=== PATIENT | female | born 1960 | race Two or more races ===

== ENCOUNTER 2025-03-11 07:37 | Day surgery (SDC) | payer BC, OTHER ==
[2025-03-06 14:31] LABS: MEAN PLATELET VOLUME 7.3 FL (7.4-10.4); PRE OP HEMATOCRIT 41.0 % (35.0-45.0); PRE OP HEMOGLOBIN 13.7 g/dL (12.0-16.0); PRE OP PLATELET COUNT 220 X10'3 (140-440); PRE OP WHITE BLOOD COUNT 5.8 10'3 (4.8-10.8); RED CELL DISTRIBUTION WIDTH 13.9 % (11.5-14.5)
[2025-03-06 14:47] LABS: CREATININE 0.54 MG/DL (0.40-0.90); PRE OP ALT 23 U/L (30-65); PRE OP ANION GAP 6 (8-16); PRE OP AST 23 U/L (10-37); PRE OP BILIRUB, TOTAL 0.5 MG/DL (0.0-1.0); PRE OP GLUCOSE 82 MG/DL (70-104); PRE OP POTASSIUM 3.9 MMOL/L (3.4-5.1); PRE OP SODIUM 141 MMOL/L (135-145); TOTAL CARBON DIOXIDE 28.1 MMOL/L (24-32); eGFR > 90 ML/MIN
[~2025-03-11] VITALS: Ht 157.5 cm; Wt 79.5 kg
[2025-03-11] VITALS (7 sets, daily range): BP systolic 116–153; BP diastolic 61–76; PULSE 62–76; RESP 11–19; TEMP 98; O2SAT 94–98
[~2025-03-11 07:37] MED LIST: BUPIVAcaine/PF 2.5mg/ml (0.25%) 10ml vial ONE; CITA-178 PO; LIDOcaine 2% (20mg/ml) 5ml vial ONE; OMEP40CA21 PO
[2025-03-11] MEDS: ringers solution, lacted 1,000 ML IV SCH (08:16)
[2025-03-11] MEDS ORDERED: morphine 4 MG/ML inj SYRINge IV PRN (08:30)
[2025-03-11] MEDS ORDERED: ringers solution, lacted 1,000 ML IV SCH (08:30)
[2025-03-11] MEDS ORDERED: labetalol 20mg/4ml (5mg/ml) syringe IV PRN (08:30)
[2025-03-11] MEDS ORDERED: ondansetron/PF 4mg/2ml inj IV PRN (08:30)
[2025-03-11] MEDS ORDERED: fentaNYL/PF 50MCG/1 ML 2ML syringe ONE (08:31)
[2025-03-11] MEDS ORDERED: propofol inj 20 ML IV ONE ×2 (08:32)
[2025-03-11] MEDS ORDERED: MIDAZolam 1 MG/ML 5ML VIAL ONE (08:32)
--- NOTE | 2025-03-11 11:58 | OPERATIVE REPORT ---
Operative Report Providers to ~ Date of Procedure: Mar 11, 2025 Pre-Operative Diagnosis: Right wrist carpal tunnel syndrome Post-Operative Diagnosis SAME as PRE-Op Procedure Performed Right wrist open carpal tunnel release Surgeon: Favian Walters MD Project Leader None Anesthesiologist: Justin Romero Type of Anesthesia: Other (Local anesthetic with IV sedation) Findings: Estimated Blood Loss: None Specimen Removed: None Description of Procedure: The patient is a 64-year-old woman with carpal tunnel syndrome refractory to nonsurgical treatment. Surgery is indicated to relieve symptoms. Risks and benefits were discussed with the patient. Some of the risks include but are not limited to infection, bleeding, nerve vessel damage and incomplete relief of symptoms. The patient agreed to proceed. Once in the operating room the arm was prepped and draped in usual manner. Time-out procedure was observed and local anesthetic was infiltrated proximal to the wrist crease. A 3 cm incision was then made in the palm ulnar to the thenar crease in line with the radial side of the ring finger through skin and palmar fascia. Dissection was taken down to the transverse carpal ligament which was then opened in line with the skin incision. The median nerve was protected while the ligament was divided distally to the transverse arch and then pr oximally to the wrist crease followed by division of the forearm fascia a short distance. The nerve was decompressed and no lesions were noted in the carpal canal. Incision was irrigated and closed with nylon suture. A sterile dressing was applied. The tourniquet was released the hand perfused well and the patient was taken to the recovery room in stable condition. FAVIAN WALTERS Jr., MD Mar 11, 2025 11:58
== END 2025-03-11 09:36 | disposition home or self-care (01) ==
LOC: PAS 07:37
PROVIDERS: ATTEND Orthopaedic Surgery Hand Surgery
DX: G56.01 Carpal tunnel syndrome, right upper limb (principal); F41.9 Anxiety disorder, unspecified; Z79.891 Long term (current) use of opiate analgesic; Z79.899 Other long term (current) drug therapy; Z98.890 Other specified postprocedural states; Z88.0 Allergy status to penicillin; Z82.49 Family history of ischemic heart disease and other diseases of the circulatory system
CPT/HCPCS: 36415; 64721; 80053; 82948; 85025; J2003; J2250; J2704; J3010; J3490; J7030; J7120; Z7506; Z7512; A4215; A6449